=== PATIENT | female | born 1985 | race Caucasian/White ===

== ENCOUNTER 2018-01-31 21:16 | Emergency (ER) | payer BC ==
[~2018-01-31] VITALS: Ht 167.6 cm; Wt 56.7 kg
--- NOTE | 2018-01-31 21:55 | Emergency Room Report ---
History of Present Illness General Chief Complaint: Abdominal Pain Source: Patient Present Illness HPI Patient presents with 4 days of lower back pain. It was fairly severe 2 days ago. Now she feels more abdominal cramping. She's had a little bit of difficulty moving her bowels. She denies dysuria but has frequency. She feels somewhat dehydrated at this time. She felt chills but no documented fever. No upper respiratory symptomatology. Her last menstruation was irregular. She checked a test last night that was negative. Her last period was about week ago. She's been feeling nauseated also. She rates her cramping is in the suprapubic area at 6/10 not radiating although she does have some back pain also. Back pain is better. She's not taking any medications but she smokes marijuana. She hasn't taken any today. She denies any ill contacts, strange foods. Several years ago she had similar back pain. At that time had a retained tampon. She felt vaginally last night and couldn't find any tampon. No rashes, headache, sore throat, cough, extremity pain. 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[facility] Past Surgical History: other - neurosurgery for Hilario's syndrome Social History: Reports: drug use - thc; Denies: smoking - former Social History Narrative make-up artist Last Menstrual Period: 01/24/18 Now: No - Patient took preg test last night : negative : 0 Reviewed Nursing Documentation: PMH: Agreed; PSxH: Agreed Nursing Documentation-PMH Past Medical History: No Stated History Review of Systems All Other Systems: negative except mentioned in HPI Physical Exam Vital Signs Date Time Temp Pulse Resp B/P (MAP) Pulse Ox O2 Delivery O2 Flow Rate FiO2 01/31/18 21:22 97.8 85 16 136/90 97 Room Air 97.9 Sp02 EP Interpretation: reviewed, normal General Appearance: well appearing, no apparent distress, GCS 15 Head: normocephalic Eyes: bilateral eye normal inspection, bilateral eye PERRL ENT: normal pharynx, moist mucus membranes Neck: supple Respiratory: lungs clear, normal breath sounds Cardiovascular #1: regular rate, rhythm Cardiovascular #2: 2+ radial (R) Gastrointestinal: normal inspection, normal bowel sounds, no mass, non- distended, no guarding, no rebound, tenderness - suprapubic Genitourinary: no CVA tenderness - Suprapubic Musculoskeletal: back normal, gait/station normal, normal range of motion Neurologic: alert, oriented x3, grossly normal Psychiatric: mood/affect normal Skin: normal inspection, warm/dry, other - Tattoos Medical Decision Making Diagnostic Impression: Primary Impression: Pelvic pain ER Course Patient presents with back and suprapubic pain of 4 days. Also her periods are regular. Differential includes early , ectopic, menstrual cramping, ovarian cyst, urinary tract infection amongst others. She will be evaluated with labs and urine with urine . In addition she will receive IV hydration. If the test is negative she will receive medication for nausea and pain. Labs with normal CBC and CMP. UA clear and preg neg. Toradol and zofran given. Pain much improved /. On re-exam, soft, no guard rebound. Discussed outpatient follow and need to f/u own MD tomorrow. Patient stable for outpatient observation and treatment. Laboratory Tests Test 01/31/18 22:00 White Blood Count 7.1 K/UL (4.8-10.8) Red Blood Count 4.81 M/UL (4.20-5.40) Hemoglobin 15.8 G/DL (12.0-16.0) Hematocrit 44.6 % (37.0-47.0) Mean Corpuscular Volume 93 FL (80-99) Mean Corpuscular Hemoglobin 32.8 PG (27.0-31.0) H Mean Corpuscular Hemoglobin Concent 35.4 G/DL (32.0-36.0) Red Cell Distribution Width 10.1 % (11.6-14.8) L Platelet Count 248 K/UL (150-450) Mean Platelet Volume 6.4 FL (6.5-10.1) L Neutrophils (%) (Auto) 57.7 % (45.0-75.0) Lymphocytes (%) (Auto) 32.6 % (20.0-45.0) Monocytes (%) (Auto) 7.0 % (1.0-10.0) Eosinophils (%) (Auto) 1.4 % (0.0-3.0) Basophils (%) (Auto) 1.3 % (0.0-2.0) Urine Color Pale yellow Urine Appearance Slightly cloudy Urine pH 8 (4.5-8.0) Urine Specific [place] 1.015 (1.005-1.035) Urine Protein 1+ (NEGATIVE) H Urine Glucose (UA) Negative (NEGATIVE) Urine Ketones Negative (NEGATIVE) Urine Blood Negative (NEGATIVE) Urine Nitrite Negative (NEGATIVE) Urine Bilirubin Negative (NEGATIVE) Urine Urobilinogen Normal MG/DL (0.0-1.0) Urine Leukocyte Esterase Negative (NEGATIVE) Urine RBC 0 /HPF (0 - 2) Urine WBC 0-2 /HPF (0 - 2) Urine Squamous Epithelial Cells Many /LPF (NONE/OCC) H Urine Amorphous Sediment Moderate /LPF (NONE) H Urine Bacteria Few /HPF (NONE) Urine HCG, Qualitative Negative (NEGATIVE) Sodium Level 138 MMOL/L (136-145) Potassium Level 4.1 MMOL/L (3.5-5.1) Chloride Level 102 MMOL/L (98-107) Carbon Dioxide Level 29 MMOL/L (21-32) Anion Gap 7 mmol/L (5-15) Blood Urea Nitrogen 16 mg/dL (7-18) Creatinine 0.9 MG/DL (0.55-1.30) Estimate Glomerular Filtration Rate > 60 mL/min (>60) Glucose Level 89 MG/DL (74-106) Calcium Level 9.1 MG/DL (8.5-10.1) Total Bilirubin 0.5 MG/DL (0.2-1.0) Aspartate Amino Transferase (AST) 34 U/L (15-37) Alanine Aminotransferase (ALT) 26 U/L (12-78) Alkaline Phosphatase 54 U/L (46-116) Total Protein 8.8 G/DL (6.4-8.2) H Albumin 4.6 G/DL (3.4-5.0) Globulin 4.2 g/dL Albumin/Globulin Ratio 1.1 (1.0-2.7) Lipase 149 U/L (73-393) Last Vital Signs Date Time Temp Pulse Resp B/P (MAP) Pulse Ox O2 Delivery O2 Flow Rate FiO2 01/31/18 23:35 98.6 76 16 124/86 98 Room Air 98.6 Status: improved Disposition: HOME, SELF-CARE Condition: Improved Scripts Ondansetron Odt* (ZOFRAN ODT*) 4 Mg Tab.rapdis 4 MG BC EVERY 8 HOURS, #6 TAB 1 Refill Prov: Amadou Rivers M.D. 01/31/18 Ibuprofen* (MOTRIN*) 600 Mg Tablet 600 MG ORAL Q6H PRN for For Pain, #12 TAB 1 Refill Prov: Amadou Rivers M.D. 01/31/18 Referrals: NON PHYSICIAN (PCP) Amadou Rivers M.D. Jan 31, 2018 21:55
[2018-01-31 22:22] LABS: BASOPHILS % (AUTO) 1.3 % (0.0-2.0); EOSINOPHILS % (AUTO) 1.4 % (0.0-3.0); HEMATOCRIT 44.6 % (37.0-47.0); HEMOGLOBIN 15.8 G/DL (12.0-16.0); LYMPHOCYTES % (AUTO) 32.6 % (20.0-45.0); MEAN CORPUSCULAR VOLUME 93 FL (80-99); NEUTROPHILS % (AUTO) 57.7 % (45.0-75.0); PLATELET COUNT 248 K/UL (150-450); RED BLOOD COUNT 4.81 M/UL (4.20-5.40); RED CELL DISTRIBUTION WIDTH 10.1 % (11.6-14.8); WHITE BLOOD COUNT 7.1 K/UL (4.8-10.8)
[2018-01-31 22:26] LABS: APPEARANCE,URINE SLIGHTLY CLOUDY; BILIRUBIN, URINE NEGATIVE (NEGATIVE); COLOR,URINE PALE YELLOW; GLUCOSE, URINE (UA) NEGATIVE (NEGATIVE); KETONES,URINE NEGATIVE (NEGATIVE); LEUKOCYTE ESTERASE ,URINE NEGATIVE (NEGATIVE); NITRITE,URINE NEGATIVE (NEGATIVE); PH,URINE 8 (4.5-8.0); PROTEIN,URINE 1+ (NEGATIVE); UROBILINOGEN,URINE NORMAL MG/DL (0.0-1.0)
[2018-01-31 22:32] LABS: ANION GAP 7 mmol/L (5-15); BLOOD UREA NITROGEN 16 mg/dL (7-18); CALCIUM 9.1 MG/DL (8.5-10.1); CARBON DIOXIDE 29 MMOL/L (21-32); CHLORIDE 102 MMOL/L (98-107); CREATININE 0.9 MG/DL (0.55-1.30); POTASSIUM 4.1 MMOL/L (3.5-5.1); SODIUM 138 MMOL/L (136-145)
[2018-01-31 22:36] LABS: ALANINE AMINOTRANSFERASE 26 U/L (12-78); ALBUMIN 4.6 G/DL (3.4-5.0); ALBUMIN/GLOBULIN RATIO 1.1 (1.0-2.7); ALKALINE PHOSPHATASE 54 U/L (46-116); ASPARTATE AMINO TRANSFERASE 34 U/L (15-37); BILIRUBIN,TOTAL 0.5 MG/DL (0.2-1.0)
[2018-01-31] MEDS ORDERED: Ketorolac 30mg Inj IV ONE (22:45)
[2018-01-31 22:53] VITALS: BP 124/86
[2018-01-31] MEDS ORDERED: ONDANSETRON ODT4 MG BC (23:23)
[2018-01-31] MEDS ORDERED: IBUPROFEN600 MG ORAL (23:23)
[2018-01-31 23:35] VITALS: BP 124/86
== END 2018-01-31 23:39 | disposition home or self-care (01) ==
LOC: EMR 21:42
DX: R10.2 Pelvic and perineal pain (principal); Z91.018 Allergy to other foods
CPT/HCPCS: 36415; 80053; 81003; 81025; 83690; 85025; 96361; 96374; 96375; 99284; J1885; J2405